=== PATIENT | male | born 1945 | race Caucasian/White ===

== ENCOUNTER → 2016-12-10 | Outpatient (REF) | payer MEDICARE ==
[2016-12-10 18:53] LABS: BASO # 0.1 K/mm3 (0.0-0.2); BASO % 0.7 % (0.0-1.0); EOS # 0.2 K/mm3 (0.0-0.50); EOS % 1.6 % (0.0-3.0); LARGE UNSTAINED CELL # 0.1 K/mm3 (0.0-0.4); LYMPH # 2.4 K/mm3 (1.5-4.5); LYMPH % 23.4 % (24.0-44.0); MEAN CORPUSCULAR HEMOGLOBIN 31.5 pg (27.0-33.0); MEAN CORPUSCULAR HGB CONC 33.9 g/dl (32.0-36.5); MEAN CORPUSCULAR VOLUME 92.9 fl (80.0-96.0); MONO # 0.6 K/mm3 (0.0-0.8); MONO % 6.1 % (0.0-5.0); NEUTROPHILS # 6.5 K/mm3 (1.8-7.7); NEUTROPHILS % 67.1 % (36.0-66.0); PLATELET COUNT, AUTOMATED 177 k/mm3 (150-450); RED CELL DISTRIBUTION WIDTH 12.9 % (11.5-14.5); WHITE BLOOD COUNT 9.7 K/mm3 (4.0-10.0)
[2016-12-10 19:03] LABS: ALBUMIN 3.9 GM/DL (3.2-5.2); ALBUMIN/GLOBULIN RATIO 1.3 (1.00-1.93); BILIRUBIN,TOTAL 0.3 MG/DL (0.2-1.0); CALCIUM LEVEL 8.5 MG/DL (8.8-10.2); CREATININE FOR GFR 1.37 MG/DL (0.70-1.30); GLOMERULAR FILTRATION RATE 54.4 (>42); POTASSIUM SERUM 4.7 MEQ/L (3.5-5.1); TOTAL PROTEIN 6.9 GM/DL (6.4-8.2)
== END ==
LOC: M LAB REF 16:36
PROVIDERS: ATTEND Family Medicine
DX: L25.9 Unspecified contact dermatitis, unspecified cause (principal); M67.929 Unspecified disorder of synovium and tendon, unspecified upper arm; I08.0 Rheumatic disorders of both mitral and aortic valves; Z13.6 Encounter for screening for cardiovascular disorders

== ENCOUNTER → 2017-11-25 | Outpatient (REF) | payer MEDICARE ==
[2017-11-25 19:04] LABS: BASO % 0.5 % (0.0-1.0); EOS # 0.1 10^3/uL (0.0-0.50); HEMATOCRIT 46.6 % (42.0-52.0); HEMOGLOBIN 15.2 g/dl (14.0-18.0); IMMATURE GRANULOCYTE % 0.1 % (0-0); LYMPH # 2.1 10^3/uL (1.5-4.5); LYMPH % 26.3 % (24.0-44.0); MEAN CORPUSCULAR HEMOGLOBIN 29.7 pg (27.0-33.0); MEAN CORPUSCULAR HGB CONC 32.6 g/dl (32.0-36.5); MEAN CORPUSCULAR VOLUME 91.2 fl (80.0-96.0); MONO # 0.7 10^3/uL (0.0-0.8); MONO % 8.1 % (0.0-5.0); NEUTROPHILS # 5.2 10^3/uL (1.8-7.7); PLATELET COUNT, AUTOMATED 207 10^3/uL (150-450); RED BLOOD COUNT 5.11 10^6/uL (4.30-6.10); RED CELL DISTRIBUTION WIDTH 12.7 % (11.5-14.5); WHITE BLOOD COUNT 8.1 10^3/uL (4.0-10.0)
[2017-11-25 19:18] LABS: ALBUMIN/GLOBULIN RATIO 1.38 (1.00-1.93); ALKALINE PHOSPHATASE 67 U/L (45-117); ALT/SGPT 24 U/L (12-78); ANION GAP 6 MEQ/L (8-16); AST/SGOT 16 U/L (7-37); BILIRUBIN,TOTAL 0.3 MG/DL (0.2-1.0); BLOOD UREA NITROGEN 15 MG/DL (7-18); CALCIUM LEVEL 8.7 MG/DL (8.8-10.2); CARBON DIOXIDE LEVEL 29 MEQ/L (21-32); CHLORIDE LEVEL 107 MEQ/L (98-107); CHOLESTEROL LEVEL 230 MG/DL (<200); CHOLESTEROL RISK RATIO 4.693 (<5); CREATININE FOR GFR 1.15 MG/DL (0.70-1.30); GLOMERULAR FILTRATION RATE > 60.0 (>42); GLUCOSE, FASTING 99 MG/DL (70-100); HDL CHOLESTEROL 49 MG/DL (>40); LDL CHOLESTEROL 141.6 MG/DL (<100); NON-HDL-C 181 MG/DL; POTASSIUM SERUM 4.1 MEQ/L (3.5-5.1); SODIUM LEVEL 142 MEQ/L (136-145); TOTAL PROTEIN 6.9 GM/DL (6.4-8.2); TRIGLYCERIDES LEVEL 197 MG/DL (<150)
== END ==
LOC: M LAB REF 17:49
DX: Z95.3 Presence of xenogenic heart valve (principal); R07.9 Chest pain, unspecified; R06.09 Other forms of dyspnea; Z00.00 Encounter for general adult medical examination without abnormal findings
CPT/HCPCS: 83735